=== PATIENT | male | born 1945 | race African-American/Black ===

== ENCOUNTER → 2017-07-14 15:02 | Outpatient (CLI) | payer MEDICARE, BC ==
[2013-02-04 07:41] VITALS: BMI 28.2
[~2017-07-14 15:02] MED LIST: AMBIEN10 MG PO; COMBIGAN OPHT DR5 ML; COMBIVENT INH14.7 GM; FLEXERIL10 MG PO; GLUCOPHAGE500 MG; NEURONTIN 300300 MG; NORCO 10/325 TA1 TA1 PO; PRAVACHOL40 MG PO; REMERON15 MG PO; VALTREX500 MG; XANAX0.25 MG; ZESTORETIC 20/11 TAB
== END | disposition home or self-care (01) ==
LOC: D.RAD 15:02
DX: M79.645 Pain in left finger(s) (principal)

== ENCOUNTER 2017-08-20 12:03 | Outpatient (CLI) | payer MEDICARE, BC ==
[~2017-08-20] VITALS: Ht 177.8 cm; Wt 80.9 kg
--- NOTE | ~2017-08-20 | HEMODYNAMI ---
PATIENT:NICHOLAS WALLACE MEDICAL RECORD: [id number] : 49 LOCATION:[facility] ADMISSION DATE: 08/20/17 Generatedon:08/20/201715:55 Patient name: NICHOLAS WALLACE Patient #: [id number] SSN: : 1945 Date of study: 08/20/2017 Page: Of Hemodynamic Procedure Report Patient Data Patient Demographics Procedure consent was obtained First Name: NICHOLAS Gender: Male Last Name: MADISON : 1945 Middle Initial: YOHANNES Age: 72 year(s) Patient #: [id number] Race: Black Additional ID: [id number] Contact details [address]: [address] [place] [address] State: [place] City: [place] Zip code: [address] Past Medical History Allergies: No known allergies Admission Admission Data Admission Date: 08/20/2017 Admission Time: 12:03 Admit Source: Other Height (in.): 62 BSA: 1.83 (m2) Height (cm.): 157.48 BMI: 32.92 (kg/m2) Weight (lbs.): 180 Weight (kg.): 81.65 Lab Results Lab Result Date: 08/20/2017 Lab Result Time: 12:41 Biochemistry Name Units Result Min Max BUN mg/dl 15 --(--*-)-- 7 18 Creatinine mg/dl 1.3 --(---*)-- 0.6 1.3 CBC Name Units Result Min Max Hematocrit % 42 --(*---)-- 42 54 Hemoglobin g/dl 14.8 --(-*--)-- 13.5 17.5 Procedure Procedure Types Cath Procedure Diagnostic Procedure [facility] w/Coronaries Procedure Description Procedure Date Procedure Date: 08/20/2017 Procedure Start Time: 15:40 Procedure End Time: 15:54 Procedure Staff Name Function Darion Chahal MD Performing Physician Mahin Mariscal RT Monitor Deanne Handley RT Scrub Alysia Bunch RN Nurse Phylicia Ashton RN Nurse Procedure Data Cath Procedure Fluoroscopy Diagnostic fluoroscopy Total fluoroscopy Time: 2.8 time: 2.8 min min Diagnostic fluoroscopy Total fluoroscopy dose: 535 dose: 535 mGy mGy Contrast Material Contrast Material Type Amount (ml) Isovue 300 55 Entry Location Entry Primary Successful Side Size Upsize Upsize Entry Closure Paredes ccessful Closure Location (Fr) 1 (Fr) 2 (Fr) Remarks Device Remarks Radial Right 6 Fr Mechanical artery Short Compression Estimated blood loss: 10 ml Diagnostic catheters Device Type Used For End Catheter Placement DIAGNOSTIC Haris 110cm Procedure 5Fr catheter ([id number]) DIAGNOSTIC AR MOD 5Fr Procedure Catheter ([id number]) Procedure Complications No complications Procedure Medications Medication Administration Route Dosage 0.9% NaCl I.V. 100 ml/hr Oxygen NC 2 l/min Lidocaine 2% added to field 20 Heparin Flush Bag added to field 2 bags (1000units/500ml NS) Radial Cocktail added to field 1 syringe (Verapomil 2mg/Nitro 400mcg/Heparin 1500units) Fentanyl I.V. 50 mcg Versed I.V. 1 mg Versed I.V. 1 mg Fentanyl I.V. 50 mcg Versed I.V. 1 mg Fentanyl I.V. 50 mcg Versed I.V. 1 mg Fentanyl I.V. 50 mcg Hemodynamics Rest BSA: 1.83 (m2) HGB: 14.8 (g/dl) O2 Consumption: Estimated: 205 (ml/min) O2 Consu mption indexed: Estimated:112.02 (ml/min/m) Heart Rate: 60 (bpm) Pressure Samples Time Site Value (mmHg) Purpose Heart Use Rate(bpm) 15:43 LV 94/-2,9 Snapshot 81 15:44 AO 69/41(50) Pullback 90 15:44 LV 103/-8,3 Pullback 90 Gradients Valve Time Site 1 Site 2 Mean SEP/DFP Peak To Heart Use (mmHg) (sec/min) Peak Rate (mmHg) (bpm) Aortic 15:44 LV AO 14 22 34 90 103/-8,3 69/41(50) Calculations Valve P-P Mean Valve Index Valve Source Name Gradient Area Flow (cm2) Aortic 34 14 34 14 Snapshots Pre Cath Intra NCS Post Cath Vital Signs Time Heart Resp SPO2 etCO2 NIBP (mmHg) Rhythm Pain Sedation Rate (ipm) (%) (mmHg) Status Level (bpm) 15:27:03 55 15 100 35.3 124/77(101) NSR 0 (11) 10(A) , No pain 15:31:14 62 17 100 27 115/72(85) NSR 0 (11) 10(A) , No pain 15:35:22 58 16 95 30.8 96/60(70) NSR 0 (11) 10(A) , No pain 15:39:28 50 18 100 31.5 100/55(71) NSR 0 (11) 10(A) , No pain 15:43:34 89 16 100 0 92/60(73) NSR 0 (11) 9(A) , No pain 15:47:38 69 14 97 36 94/53(91) NSR 0 (11) 9(A) , No pain 15:51:41 60 17 100 36.8 95/58(77) NSR 0 (11) 10(A) , No pain Medications Time Medication Route Dose Verified Delivered Reason Notes Effectiveness by by 15:14:49 0.9% NaCl I.V. 100ml/hr Darion Phylicia used for Tirso Ashton RN procedure 15:14:57 Oxygen NC 2 l/min Darion Phylicia Per Tirso Ashton RN physician 15:15:04 Lidocaine 2% added 20ml Darion Darion for local to vial Tirso Chahal MD anesthetic field 15:15:15 Heparin Flush added 2 bags Darion Darion used for Bag to Tirso Chahal MD procedure (1000units/500ml field NS) 15:26:02 Radial Cocktail added 1 Darion Darion for (Verapomil to syringe Tirso Chahal MD vasodilation 2mg/Nitro field 400mcg/Heparin 1500units) 15:39:04 Fentanyl I.V. 50 mcg Darion Phylicia for sedation Tirso Ashton RN 15:39:11 Versed I.V. 1 mg Darion Phylicia for sedation Tirso Ashton RN 15:41:11 Versed I.V. 1 mg Darion Phylicia for sedation Tirso Ashton RN 15:41:17 Fentanyl I.V. 50 mcg Darion Phylicia for sedation Tirso Ashton RN 15:43:16 Versed I.V. 1 mg Darion Phylicia for sedation Tirso Ashton RN 15:43:21 Fentanyl I.V. 50 mcg Darion Phylicia for sedation Tirso Ashton RN 15:46:48 Versed I.V. 1 mg Darion Phylicia for sedation Tirso Ashton RN 15:46:54 Fentanyl I.V. 50 mcg Darion Phylicia for sedation Tirso Ashton RN Procedure Log Time Note 15:06:06 Patient Height : 62 inches 15:06:31 Patient Weight : 180 lbs 15:12:17 Admit Source: Other 15:12:31 Diagnostic Cath status Elective 15:12:34 Deanne Handley RT(R) sent for patient. Start room use. 15:12:43 Time tracking: Regular hours 15:12:47 Plan of Care:Hemodynamics will remain stable., Cardiac rhythm will remain stable., Comfort level will be maintained., Respiratory function will remain adequate., Patient/ family verbilizes understanding of procedure., Procedure tolerated without complication., Recovers from procedure without complications.. 15:12:54 H&P Date Dictated: 08/15/2017 Within 30 days and on chart., H&P Addendum completed by physician on day of procedure. (MUST COMPLETE FOR ALL OUTPATIENTS). 15:12:56 Family in waiting room. 15:12:58 Patient NPO since Midnight. 15:14:04 Lab Result : Hemoglobin 14.8 g/dl 15:14:04 Lab Result : Hematocrit 42 % 15:14:04 Lab Result : BUN 15 mg/dl 15:14:04 Lab Result : Creatinine 1.3 mg/dl 15:14:11 Lab results completed and on chart. 15:14:49 0.9% NaCl 100ml/hr I.V. was administered by Phylicia Ashton RN; used for procedure; 15:14:57 Oxygen 2 l/min NC was administered by Phylicia Ashton RN; Per physician; 15:15:04 Lidocaine 2% 20ml vial added to field was administered by Darion Chahal MD; for local anesthetic; 15:15:15 Heparin Flush Bag (1000units/500ml NS) 2 bags added to field was administered by Darion Chahal MD; used for procedure; 15:21:21 Patient received from Pre/Post Procedure Room to [facility] 2 Alert and oriented. Tansferred to table in Supine position. 15:21:21 Warm blankets applied, and marcelo hugger turned on for patient comfort. 15:21:22 Correct patient and procedure confirmed by team. 15::23 Signed procedure consent form obtained from patient. 15:21:24 ECG and BP/O2 sat monitors applied to patient. 15:21:24 Pre-procedure instructions explained to patient. 15:21:25 Pre-op teaching completed and patient verbalized understanding. 15:21:34 Patient allergic to No known allergies 15:22:11 Is the patient allergic to Iodine/contrast media? No. 15:22:12 Is patient on blood thinner?No 15:22:13 Patient diabetic? No. 15:22:16 Previous problem with sedation/anesthesia? No ? 15:22:20 Snore? Yes 15:22:21 Sleep apnea? Yes 15:22:22 Deviated septum? No 15:22:23 Opens mouth fully? Yes 15:22:24 Sticks out tongue? Yes 15:22:26 Airway obstruction? Yes copd 15:22:29 Dentures? No ? 15:25:50 Vital chart was started 15:26:02 Radial Cocktail (Verapomil 2mg/Nitro 400mcg/Heparin 1500units) 1 syringe added to field was administered by Darion Chahal MD; for vasodilation; 15:31:50 Pre procedure: right dorsailis pedis pulse 2+ Normal; easily identifiable; not easily obliterated 15:31:52 Modified Joe's test Ulnar < 7 seconds 15:31:54 Patient pain scale 0/10 ?. 15:32:07 IV patent on arrival in left forearm with 0.9% NaCl at O. 15:32:11 Right Radial & Right Groin area was prepped with chlora-prep and draped in sterile fashion 15:32:12 Alarms reviewed by R. N. 15:32:13 Sharps counted by scrub and verified by R.N. 15:32:15 Use device set Radial Dx or PCI 15:32:16 ACIST Syringe (97433) opened to sterile field. 15:32:18 Medline Cath Pack ([id number]) opened to sterile field. 15:32:18 Bag Decanter (2002) opened to sterile field. 15:32:19 ACIST Hand Control (73786) opened to sterile field. 15:32:20 ACIST Manifold (53776) opened to sterile field. 15:32:20 Tegaderm 4 x 4 (1626W) opened to sterile field. 15:32:21 MBrace Wrist Support ([id number]) opened to sterile field. 15:32:30 NEEDLE Cook 21G 4cm Radial (K92856) opened to sterile field. 15:32:32 DIAGNOSTIC WIRE .035 260cm J wire (191970) opened to sterile field. 15:32:36 SHEATH 6FR Slender ([id number]) opened to sterile field. 15:32:42 Baseline sample Acquired. 15:32:46 Rhythm: sinus rhythm 15:32:47 Full Disclosure recording started 15:32:51 Physician arrived 15::51 --------ALL STOP TIME OUT------ 15:32:51 Final Timeout: patient, procedure, and site verified with staff and physician. All members of the team are in agreement. 15:32:56 Right Radial & Right Groin site verified by team. 15:32:59 Physical assessment completed. ASA score P 2 - A patient with mild systemic disease as per Darion Chahal MD. 15:33:01 Sedation plan: IV Moderate Sedation Medication:Versed, Fentanyl 15:39:04 Fentanyl 50 mcg I.V. was administered by Phylicia Ashton RN; for sedation; 15:39:11 Versed 1 mg I.V. was administered by Phylicia Ashton RN; for sedation; 15:40:27 Procedure started. 15:40:32 Local anesthetic to right radial artery with Lidocaine 2% by Darion Chahal MD.INITIAL ACCESS ONLY 15:41:11 Versed 1 mg I.V. was administered by Phylicia Ashton RN; for sedation; 15:41:17 Fentanyl 50 mcg I.V. was administered by Phylicia Ashton RN; for sedation; 15:41:34 A 6 Fr Short sheath was inserted into the Right Radial artery 15:41:36 Zero performed for pressure channel P1 15:41:39 Zero performed for pressure channel P1 15:41:42 Zero performed for pressure channel P1 15:42:16 A DIAGNOSTIC Haris 110cm 5Fr catheter (075131) was advanced over the wire and used for Procedure. 15:43:16 Versed 1 mg I.V. was administered by Phylicia Ashton RN; for sedation; 15:43:21 Fentanyl 50 mcg I.V. was administered by Phylicia Ashton RN; for sedation; 15:43:37 LV hemodynamics recorded. 15:44:00 LV gram done using STOCK 15:44:03 Injector settings: Ml/sec: 5, Volume: 15, 15:44:20 EF : 55 % 15:45:17 LCA angiography performed. 15:46:33 Catheter exchanged over wire. 15:46:37 A DIAGNOSTIC AR MOD 5Fr Catheter ([id number]) was advanced over the wire and used for Procedure. 15:46:48 Versed 1 mg I.V. was administered by Phylicia Ashton RN; for sedation; 15:46:54 Fentanyl 50 mcg I.V. was administered by Phylicia Ashton RN; for sedation; 15:48:29 RCA angiography performed. 15:49:39 Catheter removed. 15:49:47 TR BAND Standard ([id number]) opened to sterile field. 15:50:43 Sheath removed intact; hemostasis achieved with Mechanical Compression to the Right Radial artery. 15:50:45 Procedure ended.(Physican Out) 15:51:08 Fluoroscopy time 02.80 minutes. 15:51:13 Fluoroscopy dose: 535 mGy 15:51:13 Flurop Dose total: 535 15:51:16 Contrast amount:Isovue 300 55ml. 15:51:26 Sharps counted by scrub and verified by R.N. 15:51:31 TR band inflated with 12cc of air. 15:51:32 Insertion/operative site no bleeding no hematoma. 15:51:35 Post Procedure Pulses reassessed and unchanged 15:51:44 Post procedure rhythm: unchanged. 15:52:17 Estimated blood loss: 10 ml 15:52:56 Post procedure instruction explained to patient.Patient verbalizes understanding. 15:52:57 Patient needs reinforcement of post procedure teaching. 15:54:24 Procedure and supply charges have been captured, reviewed, submitted and are correct. 15:54:26 Procedure Complication : No complications 15:54:28 Vital chart was stopped 15:54:33 See physician's report for complete and final results. 15:54:36 Report given to Pre/Post Procedure Room. 15:54:38 Patient transfered to Pre/Post Procedure Room with Stretcher. 15:54:40 Procedure ended. 15:54:40 Full Disclosure recording stopped 15:54:46 End room use (Document Last) Device Usage Item Name Manufacture Quantity Catalog Hospital Part Current Minima l Lot# / Number Charge Number Stock Stock Serial# Code ACIST Acist 1 86906 575327 094106 314071 20 Syringe Medical (03869) Systems Inc Medline Cath Cardinal 1 [id number] 068888 70734 220914 5 Pack Health ([id number]) Bag Decanter Microtek 1 2001S 298015 39141 261035 5 (2001S) Medical Inc. ACIST Hand Acist 1 64432 198214 677824 003744 5 Control Medical (05011) Systems Inc ACIST Acist 1 88659 065637 081846 134479 5 Manifold Medical (31520) Systems Inc Tegaderm 4 x 3M 1 1626W 209740 922139 190419 5 4 (1626W) MBrace Wrist Advanced 1 140-0250-00 196485 83435 489944 5 Support Vascular ([id number]) Dynamics NEEDLE Cook Cook Medical 1 B67271 958571 296766 077572 5 21G 4cm Radial (F66673) DIAGNOSTIC St Florin 1 103553 254544 931619 740561 30 WIRE .035 260cm J wire (540531) SHEATH 6FR Terumo 1 [id number] 068043 532042 705796 40 Slender ([id number]) DIAGNOSTIC Terumo 1 40-5023 592820 470143 120335 5 Haris 110cm 5Fr catheter (608623) DIAGNOSTIC Cardinal 1 [id number] 521482 262026 111469 15 AR MOD 5Fr Health Catheter (150267Z) TR BAND Terumo 1 [id number] 279585 972960 177147 40 Standard ([id number]) Signature Audit [place] Stage Time Signature Unsigned Intra-Procedure 08/20/2017 Mahin Mariscal 3:55:04 PM RT(R) Signatures Monitor : Mahin Mariscal RT Signature : Date : Time : [facility] [address] [place] [address]
[2017-08-20] MEDS ORDERED: TOPROL XL50 MG PO (12:21)
[2017-08-20] MEDS ORDERED: VENTOLIN HFA18 GM INH (12:21)
[2017-08-20] MEDS ORDERED: FUROSEMIDE20 MG PO (12:22)
[2017-08-20] MEDS ORDERED: LIPITOR80 MG PO (12:22)
[2017-08-20] MEDS ORDERED: NORVASC10 MG PO (12:22)
[2017-08-20] MEDS ORDERED: BENTYL 20 MG TA20 MG PO (12:23)
[2017-08-20] MEDS ORDERED: FLOMAX0.4 MG PO (12:24)
[2017-08-20] MEDS ORDERED: KLONOPIN0.5 MG PO (12:25)
[2017-08-20] MEDS ORDERED: BAYER CHEWABLE81 MG PO (12:26)
[2017-08-20] MEDS ORDERED: TIMOPTIC 0.5 % O5 ML EACH EYE (12:26)
[2017-08-20 12:36] VITALS: BP 145/84; Ht 177.8 cm; Wt 80.9 kg
[2017-08-20 12:55] LABS: ANION GAP 11.5 mmol/L (8-16); CALCIUM 9.4 mg/dL (8.5-10.1); CARBON DIOXIDE 30.1 mmol/L (21.0-32.0); CREATININE - SERUM 1.3 mg/dL (0.6-1.3); POTASSIUM - SERUM 3.6 mmol/L (3.5-5.1)
[2017-08-20 13:18] LABS: BASOPHILS 0.5 % (0-2); EOSINOPHILS 6.2 % (0-7); HEMOGLOBIN 14.8 g/dL (13.5-17.5); IMMATURE GRANULOCYTES 0.2 % (0-5); LYMPHOCYTES 24.7 % (15-50); MCH 30.7 pg (26.0-34.0); MCHC 35.2 g/dL (31.0-37.0); MCV 87.1 fL (80.0-100.0); MEAN PLATELET VOLUME 9.5 fL (7.4-10.4); MONOCYTES 7.6 % (2-11); NEUTROPHILS 60.8 % (40-80); PLATELET COUNT 203 10x3/uL (130-400); RBC 4.82 10x6/uL (4.20-6.10); WBC 4.4 10x3/uL (4.8-10.8)
== END 2017-08-20 18:20 | disposition home or self-care (01) ==
LOC: D.CATH 12:03
PROVIDERS: Internal Medicine Cardiovascular Disease
DX: I25.10 Atherosclerotic heart disease of native coronary artery without angina pectoris (principal); I50.9 Heart failure, unspecified; I10 Essential (primary) hypertension; E11.9 Type 2 diabetes mellitus without complications; Z01.812 Encounter for preprocedural laboratory examination

== ENCOUNTER → 2017-10-02 12:12 | Outpatient (CLI) | payer MEDICARE, BC ==
[2017-08-20 12:36] VITALS: BMI 25.5
[~2017-10-02 12:12] MED LIST changes: +BAYER CHEWABLE81 MG PO; +BENTYL 20 MG TA20 MG PO; +FLOMAX0.4 MG PO; +FUROSEMIDE20 MG PO; +KLONOPIN0.5 MG PO; +LIPITOR80 MG PO; +METFORMIN HCL500 M1 PO; -NEURONTIN 300300 MG; +NEURONTIN 300300 MG PO; +NORVASC10 MG PO; +OMEPRAZOLE20 M1 PO; +TIMOPTIC 0.5 % O5 ML EACH EYE; +TOPROL XL50 MG PO; +VENTOLIN HFA18 GM INH
== END | disposition home or self-care (01) ==
LOC: D.RT 12:12
DX: R93.8 Abnormal findings on diagnostic imaging of other specified body structures (principal); J44.9 Chronic obstructive pulmonary disease, unspecified

== ENCOUNTER 2017-11-13 08:25 | Outpatient (CLI) | payer MEDICARE, BC ==
[~2017-11-13] VITALS: Ht 177.8 cm; Wt 84.1 kg
--- NOTE | ~2017-11-13 | OP ---
PATIENT NAME: NICHOLAS WALLACE MEDICAL RECORD: [id number] :49 LOCATION:[facility] ADMISSION DATE: SURGEON: JOSÉ MIGUEL SUTHERLAND MD DATE OF OPERATION: 11/13/2017 PROCEDURE: Fiberoptic bronchoscopy. INDICATION: Mr. Wallace is a 72-year-old gentleman. Recently, he has a CT scan of the chest, which showed atelectasis and pneumonia in the right middle lobe. Fiberoptic bronchoscopy was carried out to inspect the airway for any endobronchial lesion, mucous plug, or foreign body. MONITORING: EKG, pulse, and blood pressure were monitored throughout the procedure. MEDICATIONS: Versed 5 mg IV in divided doses, fentanyl 100 mcg IV in divided doses, morphine 5 mg IM, atropine 0.6 mg IM, and Phenergan 12.5 mg IV. DESCRIPTION OF PROCEDURE: After obtaining the conscious sedation, fiberoptic bronchoscope was passed through the mouth. The epiglottis was normal. The vocal cords were normal, move equally on phonation. The main trachea was normal. The whitney was sharp. The right main bronchus subsegment to the right upper lobe within normal range. No endobronchial lesion was seen. The right bronchus intermedius, right middle lobe, right lower lobe subsegment within normal range. No endobronchial lesion was seen. The left main bronchus was normal. The subsegment to the left upper lobe lingula within normal range. No endobronchial lesion was seen. The superior segment of the left lower lobe within normal range. No endobronchial lesion, no foreign body was seen. The subsegment to the left lower lobe within normal range. No endobronchial lesion. No mucous plugs, no foreign body was seen. Overall, the patient tolerated the procedure very well. Specimen washing was obtained and sent for routine culture sensitivity, AB and fungus, and cytology. We will repeat the CT scan of the chest in 3 months' time. TRANSINT:[id number] Voice Confirmation ID: [id number] DOCUMENT ID: [id number] JOSÉ MIGUEL SUTHERLAND MD CC: [id number] DICTATION DATE: 11/13/17 1105 MUD JACK NOZZLEMAN: 11/13/17 1525 [facility] [address] [place] [address]
[~2017-11-13 08:25] MED LIST changes: -METFORMIN HCL500 M1 PO; -OMEPRAZOLE20 M1 PO
[2017-11-13 09:04] LABS: BASOPHILS 0.2 % (0-2); EOSINOPHILS 2.6 % (0-7); HEMATOCRIT 41.2 % (42.0-54.0); HEMOGLOBIN 14.8 g/dL (13.5-17.5); LYMPHOCYTES 31.6 % (15-50); MCH 30.8 pg (26.0-34.0); MCHC 35.9 g/dL (31.0-37.0); MCV 85.7 fL (80.0-100.0); MEAN PLATELET VOLUME 9.1 fL (7.4-10.4); MONOCYTES 7.5 % (2-11); NEUTROPHILS 58.1 % (40-80); PLATELET COUNT 229 10x3/uL (130-400); RBC 4.81 10x6/uL (4.20-6.10); RDW 13.9 % (11.5-14.5); WBC 4.2 10x3/uL (4.8-10.8)
[2017-11-13 09:30] LABS: APTT 24.6 SECONDS (22.8-39.4); INR 0.98 (0.85-1.17); PROTIME 12.6 SECONDS (11.6-15.0)
[2017-11-13] MEDS ORDERED: METFORMIN HCL500 M1 PO (09:56)
[2017-11-13] MEDS ORDERED: OMEPRAZOLE20 M1 PO (09:56)
[2017-11-13 10:00] VITALS: BP 149/82; Ht 177.8 cm; Wt 84.1 kg
[2017-11-14 14:25] LABS: ACID FAST SMEAR Negative (()); AFB SPECIMEN PROCESSING Concentration (())
[2017-11-17 14:18] LABS: FUNGUS STAIN Final report (())
[2017-11-20 17:12] LABS: FUNGUS MYCOLOGY CULTURE Preliminary report (())
== END 2017-11-13 13:10 | disposition home or self-care (01) ==
LOC: D.SP 08:25 → D.OPS 10:00 → D.SP 10:00
PROVIDERS: Internal Medicine Pulmonary Disease
DX: J18.9 Pneumonia, unspecified organism (principal); J98.11 Atelectasis; J44.9 Chronic obstructive pulmonary disease, unspecified; G47.30 Sleep apnea, unspecified; Z87.891 Personal history of nicotine dependence; Z01.812 Encounter for preprocedural laboratory examination

== ENCOUNTER 2018-02-09 05:29 | Outpatient (CLI) | payer MEDICARE, BC ==
[~2018-02-09] VITALS: Ht 177.8 cm; Wt 82.3 kg
[~2018-02-09 05:29] MED LIST changes: +METFORMIN HCL500 M1 PO; +OMEPRAZOLE20 M1 PO
[2018-02-09 05:44] LABS: BASOPHILS 0.6 % (0-2); EOSINOPHILS 2.4 % (0-7); HEMATOCRIT 39.8 % (42.0-54.0); HEMOGLOBIN 14.4 g/dL (13.5-17.5); LYMPHOCYTES 33.3 % (15-50); MCHC 36.2 g/dL (31.0-37.0); MCV 85.6 fL (80.0-100.0); MEAN PLATELET VOLUME 8.9 fL (7.4-10.4); MONOCYTES 9.7 % (2-11); PLATELET COUNT 212 10x3/uL (130-400); RBC 4.65 10x6/uL (4.20-6.10); RDW 13.4 % (11.5-14.5)
[2018-02-09 05:52] LABS: INR 0.97 (0.85-1.17); PROTIME 12.5 SECONDS (11.6-15.0)
[2018-02-09 05:53] LABS: APTT 25.4 SECONDS (22.8-39.4)
[2018-02-09 05:55] LABS: CALCIUM 9.1 mg/dL (8.5-10.1); CARBON DIOXIDE 33.7 mmol/L (21.0-32.0); CREATININE - SERUM 1.4 mg/dL (0.6-1.3)
[2018-02-09 06:01] LABS: POTASSIUM - SERUM 2.7 mmol/L (3.5-5.1)
[2018-02-09] MEDS ORDERED: ARNUITY ELLIP200 MCG INH (06:17)
[2018-02-09 06:22] VITALS: BP 117/71; Ht 177.8 cm; Wt 82.3 kg
== END 2018-02-09 11:45 | disposition home or self-care (01) ==
LOC: D.SP 05:29 → D.CT 08:00 → D.SP 08:00
PROVIDERS: Specialist
DX: R91.1 Solitary pulmonary nodule (principal); Z53.09 Procedure and treatment not carried out because of other contraindication

== ENCOUNTER 2018-02-20 05:20 | Outpatient (CLI) | payer MEDICARE, BC ==
[~2018-02-20] VITALS: Ht 177.8 cm; Wt 83.5 kg
[~2018-02-20 05:20] MED LIST changes: +ARNUITY ELLIP200 MCG INH
[2018-02-20 05:36] LABS: BASOPHILS 0.6 % (0-2); EOSINOPHILS 2.3 % (0-7); HEMATOCRIT 40.8 % (42.0-54.0); HEMOGLOBIN 14.4 g/dL (13.5-17.5); IMMATURE GRANULOCYTES 0.2 % (0-5); LYMPHOCYTES 30.9 % (15-50); MCHC 35.3 g/dL (31.0-37.0); MCV 87.9 fL (80.0-100.0); MEAN PLATELET VOLUME 9.1 fL (7.4-10.4); MONOCYTES 8.3 % (2-11); NEUTROPHILS 57.7 % (40-80); PLATELET COUNT 208 10x3/uL (130-400); RBC 4.64 10x6/uL (4.20-6.10); RDW 13.5 % (11.5-14.5); WBC 4.7 10x3/uL (4.8-10.8)
[2018-02-20] MEDS ORDERED: KLOR-CON 1010 MEQ PO (05:56)
[2018-02-20] MEDS ORDERED: HYDROCHLOROTHIA25 MG PO (05:57)
[2018-02-20 06:04] VITALS: Ht 177.8 cm; Wt 83.5 kg
[2018-02-20 06:09] LABS: ANION GAP 8.5 mmol/L (8-16); CALCIUM 8.9 mg/dL (8.5-10.1); CARBON DIOXIDE 30.3 mmol/L (21.0-32.0); CREATININE - SERUM 1.4 mg/dL (0.6-1.3); POTASSIUM - SERUM 3.8 mmol/L (3.5-5.1)
[2018-02-20 07:03] LABS: PROTIME 12.8 SECONDS (11.6-15.0)
== END 2018-02-20 12:15 | disposition home or self-care (01) ==
LOC: D.SP 05:20
PROVIDERS: Radiology Diagnostic Radiology
DX: C34.32 Malignant neoplasm of lower lobe, left bronchus or lung (principal); Z01.812 Encounter for preprocedural laboratory examination

== ENCOUNTER 2018-04-03 01:56 | Emergency (ER) | payer MEDICARE, BC, OTHER ==
[~2018-04-03] VITALS: Ht 177.8 cm; Wt 84.1 kg
[~2018-04-03 01:56] MED LIST changes: +HYDROCHLOROTHIA25 MG PO; +KLOR-CON 1010 MEQ PO
[2018-04-03 01:58] VITALS: Ht 177.8 cm; Wt 84.1 kg
[2018-04-03 02:34] LABS: BASOPHILS 0.2 % (0-2); EOSINOPHILS 4.2 % (0-7); HEMATOCRIT 34.2 % (42.0-54.0); IMMATURE GRANULOCYTES 0.5 % (0-5); LYMPHOCYTES 15.8 % (15-50); MCH 30.5 pg (26.0-34.0); MCHC 35.1 g/dL (31.0-37.0); MCV 86.8 fL (80.0-100.0); MEAN PLATELET VOLUME 8.2 fL (7.4-10.4); MONOCYTES 11.6 % (2-11); NEUTROPHILS 67.7 % (40-80); PLATELET COUNT 343 10x3/uL (130-400); RBC 3.94 10x6/uL (4.20-6.10); RDW 12.9 % (11.5-14.5); WBC 6.2 10x3/uL (4.8-10.8)
[2018-04-03 02:41] LABS: APTT 29.7 SECONDS (22.8-39.4); INR 0.97 (0.85-1.17); PROTIME 12.5 SECONDS (11.6-15.0)
[2018-04-03 02:42] LABS: D-DIMER-QUANTITATIVE 3.26 ug/mLFEU (0.20-0.54)
[2018-04-03 02:45] LABS: ALKALINE PHOSPHATASE 147 U/L (46-116); ALT (SGPT) 72 U/L (10-68); BILIRUBIN - TOTAL 0.42 mg/dL (0.2-1.3); CALC OSMOLALITY 279 mosm/kg (275-300); CARBON DIOXIDE 30.5 mmol/L (21.0-32.0); CHLORIDE - SERUM 100 mmol/L (98-107); CREATININE - SERUM 1.3 mg/dL (0.6-1.3); POTASSIUM - SERUM 3.9 mmol/L (3.5-5.1); PROTEIN - SERUM 7.3 g/dL (6.4-8.2); SODIUM 138 mmol/L (136-145); UREA NITROGEN 15 mg/dL (7-18); eGFR NON AFRICAN AMERICAN 58 mL/min (90-120)
[2018-04-03 02:50] LABS: GLUCOSE 159 mg/dL (74-106)
[2018-04-03 02:57] LABS: CKMB 0.6 U/L (0.0-3.6); CREATINE KINASE 112 UL (21-232)
[2018-04-03 03:02] LABS: TROPONIN-I < 0.017 ng/mL (0.000-0.060)
[2018-04-03 08:00] VITALS: BP 121/78
== END 2018-04-03 08:02 | disposition home or self-care (01) ==
LOC: D.ER 01:56
PROVIDERS: Family Medicine
DX: G89.18 Other acute postprocedural pain (principal); R07.89 Other chest pain; Z86.73 Personal history of transient ischemic attack (TIA), and cerebral infarction without residual deficits; E11.9 Type 2 diabetes mellitus without complications; J44.9 Chronic obstructive pulmonary disease, unspecified; I10 Essential (primary) hypertension; K21.9 Gastro-esophageal reflux disease without esophagitis; Z85.118 Personal history of other malignant neoplasm of bronchus and lung

== ENCOUNTER 2018-08-13 12:03 | Observation (INO) | payer MEDICARE, BC ==
[~2018-08-13] VITALS: Ht 177.8 cm; Wt 81.6 kg
[~2018-08-13 12:03] MED LIST changes: -COMBIGAN OPHT DR5 ML; +COMBIGAN OPHT DR5 ML EACH EYE
[2018-08-13 17:22] VITALS: BP 140/78
[2018-08-13 19:28] LABS: ALBUMIN 3.8 g/dL (3.4-5.0); ALKALINE PHOSPHATASE 128 U/L (46-116); ALT (SGPT) 85 U/L (10-68); BILIRUBIN - TOTAL 0.87 mg/dL (0.2-1.3); CALC OSMOLALITY 281 mosm/kg (275-300); CARBON DIOXIDE 30.3 mmol/L (21.0-32.0); CHLORIDE - SERUM 98 mmol/L (98-107); GLUCOSE 182 mg/dL (74-106); PROTEIN - SERUM 7.5 g/dL (6.4-8.2); SODIUM 139 mmol/L (136-145); UREA NITROGEN 9 mg/dL (7-18); eGFR NON AFRICAN AMERICAN 78 mL/min (90-120)
[2018-08-13 19:31] LABS: APTT 29.4 SECONDS (22.8-39.4); INR 1.06 (0.85-1.17); POTASSIUM - SERUM 2.6 mmol/L (3.5-5.1); PROTIME 13.3 SECONDS (11.6-15.0)
[2018-08-13 19:35] LABS: HEMOGLOBIN 13.3 g/dL (13.5-17.5); MEAN PLATELET VOLUME 8.4 fL (7.4-10.4); RBC 4.58 10x6/uL (4.20-6.10); RDW 15.2 % (11.5-14.5); WBC 5.5 10x3/uL (4.8-10.8)
[2018-08-13 19:39] LABS: PLATELET COUNT 132 10x3/uL (130-400)
[2018-08-13 19:58] VITALS: BP 151/86; BMI 25.8
[2018-08-13 20:07] LABS: LYMPHOCYTES 15 % (15-50); MONOCYTES 6 % (2-11); NEUTROPHILS 75 % (40-80); PLATELET ESTIMATE NORMAL; TOXIC GRANULATION 2+
[2018-08-13 20:10] VITALS: BP 151/86
[2018-08-13 23:49] VITALS: BP 122/74
[2018-08-14 04:10] VITALS: BP 119/76
[2018-08-14 06:14] LABS: BASOPHILS 0.2 % (0-2); EOSINOPHILS 0.3 % (0-7); IMMATURE GRANULOCYTES 3.5 % (0-5); LYMPHOCYTES 21.7 % (15-50); MCH 29.2 pg (26.0-34.0); MCV 83.4 fL (80.0-100.0); MEAN PLATELET VOLUME 8.5 fL (7.4-10.4); MONOCYTES 11.3 % (2-11); PLATELET COUNT 154 10x3/uL (130-400); RDW 14.9 % (11.5-14.5)
[2018-08-14 06:15] LABS: HEMATOCRIT 28.6 % (42.0-54.0); RBC 3.43 10x6/uL (4.20-6.10)
[2018-08-14 06:37] LABS: ALBUMIN 3.3 g/dL (3.4-5.0); ANION GAP 13.2 mmol/L (8-16); BILIRUBIN - TOTAL 0.8 mg/dL (0.2-1.3); CALCIUM 8.7 mg/dL (8.5-10.1); CARBON DIOXIDE 26.7 mmol/L (21.0-32.0); CREATININE - SERUM 1.1 mg/dL (0.6-1.3); PROTEIN - SERUM 6.6 g/dL (6.4-8.2)
[2018-08-14 06:39] LABS: POTASSIUM - SERUM 3.9 mmol/L (3.5-5.1)
--- NOTE | 2018-08-14 08:04 | NUR ---
ROUNDING DONE WITH PATIENT EATING BREAKFAST. GLASSES ON. ON ROOM AIR. RIGHT WRIST SEEN WITH PIV OF NS INFUSING AT 125 CC/HR. ON EP, K+ IS 3.9. LEFT FA SEEN SLIGHTLY SWOLLEN AND RED. WILL MONITOR CLOSELY.
[2018-08-14 08:28] VITALS: BP 142/72
--- NOTE | 2018-08-14 09:42 | NUR ---
I CALLED ELIAS POLANCO APN FOR PRN NEURONITN PER PATIENT REQUEST.
--- NOTE | 2018-08-14 11:50 | NUR ---
I CALLED ELIAS POLANCO RN AT [phone] AND ASKED HER TO PLEASE LOOK AT HOME MEDS FOR PATIENT AND TO RE-START THEM PATIENT DOES NOT WANT TO TAKE INSULIN. HE STATES THAT HIS WILL BRING THE MEDICATION UP OTHERWISE. SHE TELLS ME THAT SHE WILL LOOK AT THE MEDS AGAIN. THIS IS RELAYED TO THE PAITENT.
[2018-08-14 11:59] VITALS: BP 114/78
--- NOTE | 2018-08-14 12:26 | NUR ---
HOME MEDICATIONS HAVE BEEN RE-STARTED PER ELIAS/REKHA. THIS IS RELAYED TO THE PATIENT.
--- NOTE | 2018-08-14 12:32 | NUR ---
I CALLED MADAI IN PHARMACY TO SEE IF HE COULD GET HIS MEDS UP HERE QUICKLY POSSIBLE AND SOME GABERPENTIN FOR PAIN.
--- NOTE | 2018-08-14 13:39 | NUR ---
I CALLED FRANK IN PHARMACY PATIENT STATES HE TAKES HIS ASA AND REMERON BOTH AT NIGHT.
[2018-08-14 14:50] VITALS: Ht 177.8 cm; Wt 81.6 kg
[2018-08-14 16:24] VITALS: BP 143/74
--- NOTE | 2018-08-14 17:32 | NUR ---
STILL AWAITING DISCHARGE ORDERS FROM DR DA SILVA. PATIENT IS MADE AWARE OF THIS.
--- NOTE | 2018-08-14 18:37 | NUR ---
EVENING ROUNDS COMPLETED. REPORT RECEIVED. PT SITTING UP IN BED WITH EYES OPEN, RR EVEN AND UNLABORED. BED IN LOW POSITION. INTRODUCED SELF TO PT. PT ASKED FOR INFORMATION ABOUT HIS DISCHARGE, STATED I HAVE SENT INFORMATION TO DR CHRISTY'S OFFICE REGARDING HIS DISCHARGE BUT CURRENTLY I DO NOT HAVE DISCHARGE ORDERS AT THIS TIME. NO S/S OF DISTRESS NOTED. CALL LIGHT IN REACH. WILL CTM.
[2018-08-14] MEDS ORDERED: ELIQUIS5 MG PO (19:35)
[2018-08-15 08:16] LABS: FOLATE (FOLIC ACID) - SERUM 19.7 ng/mL (>3.0)
== END 2018-08-14 20:11 | disposition home or self-care (01) ==
LOC: D.ER 12:03 → D.M3 18:31 → D.EDHOLD 18:31 → OBSVTIME 18:32 → D.M3 18:46
PROVIDERS: Family Medicine; ADMIT Internal Medicine Nephrology
DX: I82.612 Acute embolism and thrombosis of superficial veins of left upper extremity (principal); C34.90 Malignant neoplasm of unspecified part of unspecified bronchus or lung; D50.9 Iron deficiency anemia, unspecified; E87.6 Hypokalemia; I10 Essential (primary) hypertension; E78.5 Hyperlipidemia, unspecified; E11.9 Type 2 diabetes mellitus without complications

== ENCOUNTER → 2018-10-26 10:48 | Outpatient (CLI) | payer MEDICARE, BC ==
[2018-08-14 14:50] VITALS: BMI 25.8
[~2018-10-26 10:48] MED LIST changes: +ELIQUIS5 MG PO
== END | disposition home or self-care (01) ==
LOC: D.RAD 10:48
PROVIDERS: ATTEND Family Medicine
DX: M79.674 Pain in right toe(s) (principal)

== ENCOUNTER → 2019-03-24 15:01 | Outpatient (CLI) | payer MEDICARE, BC ==
[2018-08-14 14:50] VITALS: BMI 25.8
== END | disposition home or self-care (01) ==
LOC: D.RT 15:01
PROVIDERS: ATTEND Internal Medicine Pulmonary Disease
DX: J44.9 Chronic obstructive pulmonary disease, unspecified (principal)

== ENCOUNTER → 2019-04-27 12:38 | Outpatient (CLI) | payer MEDICARE, BC ==
[2018-08-14 14:50] VITALS: BMI 25.8
== END | disposition home or self-care (01) ==
LOC: D.RAD 12:38
PROVIDERS: ATTEND Internal Medicine Pulmonary Disease
DX: R13.10 Dysphagia, unspecified (principal)